=== PATIENT | female | born 1940 | race Asian ===

== ENCOUNTER 2023-02-02 19:12 | Emergency (ER) | payer OTHER ==
[~2023-02-02] VITALS: Ht 147.3 cm; Wt 50.9 kg
[2023-02-02] MEDS ORDERED: LISI20TA24 PO (20:19)
[2023-02-02] MEDS ORDERED: METF-1211 PO (20:19)
[2023-02-02] MEDS ORDERED: SIMV80TA91 PO (20:19)
[2023-02-02] MEDS ORDERED: LIDOCAINE 1% 10 ML VIAL SQ ONE (23:45)
[2023-02-03 00:35] VITALS: BP 184/87
[2023-02-03] MEDS ORDERED: IBUPROFEN 400 MG TABLET PO ONE (01:15)
[2023-02-03] MEDS ORDERED: PERTUSS(ACELL),DIPH,TET VAC/PF 0.5 ML SYRINGE IM. ONE (01:45)
== END 2023-02-03 02:27 | disposition home or self-care (01) ==
LOC: EMS 19:20
DX: S09.90XA Unspecified injury of head, initial encounter (principal); S01.81XA Laceration without foreign body of other part of head, initial encounter; E11.9 Type 2 diabetes mellitus without complications; E78.00 Pure hypercholesterolemia, unspecified; I10 Essential (primary) hypertension; Z88.8 Allergy status to other drugs, medicaments and biological substances; W01.0XXA Fall on same level from slipping, tripping and stumbling without subsequent striking against object, initial encounter; Y93.89 Activity, other specified; Y92.89 Other specified places as the place of occurrence of the external cause; Y99.8 Other external cause status
CPT/HCPCS: 99285; 70450; 73562; 12001; 90715; 90471; J3490